=== PATIENT | female | born 1980 | race Caucasian/White ===

== ENCOUNTER 2016-05-27 06:32 | Emergency (ER) | payer OTHER ==
--- NOTE | 2016-05-27 08:38 | ED CLINICAL REPORT ---
Clinical Report - Physicians/Mid Levels [facility] [address] [place] [address] 05/27/2016 6:31 Patient: PEEWEE REZA Time Seen: 06:42. Arrived- By private vehicle. Historian- patient. HISTORY OF PRESENT ILLNESS Chief Complaint: LOWER EXTREMITY PAIN and SWELLING and ; ;(22 WEEKS ). Modifying factors. (worse with palpation). Severity is described as being moderate. The quality is noted to be "pain". This started about 2 days ago. Symptoms located in the area of the left leg. The patient has had redness and swelling. She has had difficulty walking. No sensory loss or motor loss. Patient denies an injury. Recent medical care: The patient was seen recently by a health care provider. ( Bronchitis with rib fracture). REVIEW OF SYSTEMS The patient has had a cough. It has been similar to previous symptoms. She has had skin rash. No abdominal pain. PAST HISTORY ( PCP: Fozia Alexander Ops: None Hosp: Childbirth Illness: None). No history of DVT. SOCIAL HISTORY Current every day smoker. ADDITIONAL NOTES The nursing notes have been reviewed. PHYSICAL EXAM Vital Signs: 05/27/2016 09:50 BP: 116/67. HR: 80. RR: 18. O2 saturation: 100%. 05/27/2016 07:46 BP: 107/67. HR: 81. RR: 18. O2 saturation: 99%. 05/27/2016 06:37 BP: 116/74. HR: 92. RR: 16. O2 saturation: 100%. Temp: 99.5 F. Abdomen: Soft and nontender. Gravid uterus. Extremities: Left leg: moderate erythema and tenderness, mild swelling and small abrasion located in the anterior aspect of mid leg. Neurovascular intact distally. No deformity. LABS, X-RAYS, AND EKG Lower Extremity Sonography: Negative exam. Per US tecnician. Laboratory Tests: [id number]: (CHRISTINE: 05/27/2016 07:00) ( MsgRcvd 05/27/2016 07:19) Final results Test Result Flag Units (Reference) D-DIMER QUANTITATIVE 1.40 H ug/mLFEU (0.27-0.52) The primary value of this quantitative assay relates toits negative predictive value (i.e. exclusion) of pulmonaryembolism/deep vein thrombosis/DIC.Elevated levels of d-dimer may also occur with:, age, cancer, inflammation, liver disease,post-op, infection, hematoma, coronary disease, peripheralarteriopathy, bleeding disorders and thrombolytic treatment.Results should be correlated with other clinical andradiological data.Testing Methodology: Latex Immunoassay . PROGRESS AND PROCEDURES Course of Care: This represents cellulitis rather than DVT. Antibiotic choice is problematic with . At 22 weeks organogenesis is complete so Bactrim is acceptable is not ideal. Tetracycline is un acceptable because of bone and tooth issues and keflex is unlikely to treat what statistically is most likely a MRSA infection. The risk of wosening on keflex is greater that the small risk of Bactrim at 22 weeks. I confirmed my thoughts with the slot machine floor person OB Dr Dumont. Disposition: Condition: stable. CLINICAL IMPRESSION Cellulitis of the left lower leg. 22 WEEK . INSTRUCTIONS Do not work for three days. (IMMEDIATE RECHECK IF WORSE SEE YOUR DR IN 5 DAYS). Prescription Medications: Hydrocodone/APAP 5mg / 325mg: take 1 orally every 4 hours as needed for pain. Dispense fifteen (15). No refill. Trimethoprim-Sulfamethoxazole DS: take 1 tablet orally every 12 hours for 7 days. No refill. Follow-up: Follow up with your doctor in five days. Reason for referral: CELLULITIS CHECK. Understanding of the discharge instructions verbalized. (Electronically signed by Fredy Humphrey MD 05/28/2016 9:45)
--- NOTE | 2016-05-27 08:38 | ED ORDER SUMMARY ---
..... Patient: PEEWEE REZA OrderSheet [facility] VisitID: [id number] [place] [address] 36y, F Registration Date/Time: 05/27/2016 ORDER SHEET Weight: 67.1 kg (stated) Allergies: No Known Drug Allergy GENERAL ORDERS: D-Dimer Urgent (06:43 05/27/2016 Roya MATUTE) (Ack 6:48 Jose F) (7:03 Belinda ER Clinical Trials Assistant) US Venous Left Urgent (07:24 05/27/2016 Roya MATUTE) (Ack 7:27 Indra) (9:10 Bernadine R.N.) MEDICATION ORDERS: Hydrocodone-APAP PO 5/325 mg ONE TABLET (NOW) (08:45 05/27/2016 Roya MATUTE) (Ack 9:03 LSullivan R.N.) (9:06 Bernadine R.N.) Bactrim DS PO (Tablet 800-160 mg) 1 tab (NOW) (09:08 05/27/2016 Roya MATUTE) (Ack 9:10 Bernadine R.N.) (9:17 LSullivan R.N.) Bactrim DS PO (Tablet 800-160 mg) 1 tab (NOW) (09:09 05/27/2016 Bernadine R.N. verbal order read back to Roya MATUTE) (Cancelled: Duplicate Order9:10 Bernadine R.N.) IV FLUIDS: ORDER SHEET NOTES: [Electronically signed by Jovita Mcduffie R.N. (09:52 05/27/2016)] [Electronically signed by Fredy Humphrey MD (09:45 05/28/2016)] [Electronically locked/signed by Jovita Mcduffie R.N. (09:52 05/27/2016)]
--- NOTE | 2016-05-27 08:38 | ED NURSING NOTES ---
Clinical Report - Nurses [facility] [address] [place] [address] 05/27/2016 6:31 Patient: PEEWEE REZA TRIAGE Triage time 0637. Chief Complaint: LEFT LOWER EXTREMITY PAIN, SWELLING and REDNESS. Location of symptoms- (left junior). --06:45 Lionel Lawson R.N. 06:37 05/27/16. BP: 116/74. HR: 92. RR: 16. O2 saturation: 100%. Temp: 99.5 F. Pain level now 0/10. --06:45 Lionel Lawson R.N. Weight: 67.1 kg stated. Height/Length: 63 inches Per Patient. BMI: 26.2. --06:42 Lionel Lawson R.N. Medications Methadone HCl Oral. --06:41 Lionel Lawson R.N. Allergies No Known Drug Allergy. --06:41 Lionel Lawson R.N. History Arrived by private vehicle. Historian: patient. Unaccompanied. An injury may have occurred. This occurred yesterday. It is described as radiating to the left lower extremity, knee and foot. She has had swelling and redness. 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 PAST MEDICAL HX: Currently . ( 22 weeks ). SOCIAL HX: Heavy tobacco smoker- less than 1 pack per day. No alcohol use or drug use. FALL RISK ASSESSMENT: Fall risk assessment completed. No fall risk identified. NUTRITIONAL RISK ASSESSMENT: The nutritional risk assessment revealed no deficiencies. FUNCTIONAL ASSESSMENT: Functional assessment: no impairments noted. LEARNING NEEDS ASSESSMENT: The learning needs assessment revealed no barriers. SKIN INTEGRITY ASSESSMENT: Skin integrity risk assessment completed. No skin integrity risk identified. --06:45 Lionel Lawson R.N. PROBLEMS: Threatened . . Care. Dental Caries. Bronchitis. Sick Contact. LNMP - Last Normal Menstrual Period. --06:41 Lionel Lawson R.N. Interventions ID band on patient. --06:45 Lionel Lawson R.N. PHYSICAL ASSESSMENT Ambulatory to room. GENERAL / NEURO / PSYCH: Oriented X 4. Alert. Appears in no acute distress. EXTREMITIES: Extremity pulses are within normal limits. Extremities exhibit normal ROM. Left leg: tenderness, swelling and erythema of the anterior aspect of lower leg. Limited weight bearing secondary to pain. SKIN: Skin intact. Skin is warm and dry. --06:46 Lionel Lawson R.N. NURSING PROGRESS NOTES Extremity elevated. Reassurance given. Patient identifiers checked. Call light placed in reach. Side rails up x 1. Bed placed in lowest position. Brakes of bed on. --06:47 Lionel Lawson R.N. Patient ID band checked for patient name and birthdate: patient confirmed. Blood samples drawn from the left antecubital space with Vacutainer and 21g butterfly by tech per protocol ; labeled in presence of the patient and sent to lab: rainbow set. --07:02 Forest Burton, VANGIE Orange Peel Operator Patient ID band checked for patient name and birthdate: patient confirmed. Clean catch urine collected with return of yellow-colored babar-colored clear urine; sample sent to lab. Specimen labeled in the presence of the patient. --07:02 Forest Burton, ER Orange Peel Operator 07:46 05/27/16. BP: 107/67. HR: 81. RR: 18. O2 saturation: 99%. --07:47 Jovita Mcduffie R.N. 07:47 05/27/16. ( Awaiting ultrasound.). --07:47 Jovita Mcduffie R.N. 09:06 05/27/2016 Hydrocodone-APAP (Hydrocodone-Acetaminophen) PO 5/325 mg Tablets 1 tab given. Sedative warning given. --09:06 Ashia Moseley R.N. 09:12 05/27/2016 Bactrim DS (Sulfamethoxazole-TMP DS) PO 1 tab given. Allergies verified and confirmed 5 rights. --:17 Jovita Mcduffie R.N. DISPOSITION / DISCHARGE Departure time: 916. Condition at departure: unchanged. No learning barriers present. Discharge instructions provided and reviewed with the patient. Reviewed medication(s) information. Prescription(s) given to the patient. Reviewed referral to family practice for followup. Verbalized understanding. Written instructions provided. The patient was discharged home and accompanied by train electronic technician. She left the Emergency Department ambulatory on crutches, via private vehicle and (pt had her own). --09:51 Jovita Mcduffie R.N. 09:50 05/27/16. BP: 116/67. HR: 80. RR: 18. O2 saturation: 100%. --09:51 Jovita Mcduffie R.N. Departure time: 916. --09:51 Jovita Mcduffie R.N. Locked/Released at 05/27/2016 9:52 by Jovita Mcduffie R.N.
--- NOTE | 2016-05-27 08:38 | ED CLINICAL REPORT ---
Clinical Report - Physicians/Mid Levels [facility] [address] [place] [address] 05/27/2016 6:31 Patient: PEEWEE REZA Time Seen: 06:42. Arrived- By private vehicle. Historian- patient. HISTORY OF PRESENT ILLNESS Chief Complaint: LOWER EXTREMITY PAIN and SWELLING and ; ;(22 WEEKS ). Modifying factors. (worse with palpation). Severity is described as being moderate. The quality is noted to be "pain". This started about 2 days ago. Symptoms located in the area of the left leg. The patient has had redness and swelling. She has had difficulty walking. No sensory loss or motor loss. Patient denies an injury. Recent medical care: The patient was seen recently by a health care provider. ( Bronchitis with rib fracture). REVIEW OF SYSTEMS The patient has had a cough. It has been similar to previous symptoms. She has had skin rash. No abdominal pain. PAST HISTORY ( PCP: Fozia Alexander Ops: None Hosp: Childbirth Illness: None). No history of DVT. SOCIAL HISTORY Current every day smoker. ADDITIONAL NOTES The nursing notes have been reviewed. PHYSICAL EXAM Vital Signs: 05/27/2016 09:50 BP: 116/67. HR: 80. RR: 18. O2 saturation: 100%. 05/27/2016 07:46 BP: 107/67. HR: 81. RR: 18. O2 saturation: 99%. 05/27/2016 06:37 BP: 116/74. HR: 92. RR: 16. O2 saturation: 100%. Temp: 99.5 F. Abdomen: Soft and nontender. Gravid uterus. Extremities: Left leg: moderate erythema and tenderness, mild swelling and small abrasion located in the anterior aspect of mid leg. Neurovascular intact distally. No deformity. LABS, X-RAYS, AND EKG Lower Extremity Sonography: Negative exam. Per US tecnician. Laboratory Tests: [id number]: (CHRISTINE: 05/27/2016 07:00) ( MsgRcvd 05/27/2016 07:19) Final results Test Result Flag Units (Reference) D-DIMER QUANTITATIVE 1.40 H ug/mLFEU (0.27-0.52) The primary value of this quantitative assay relates toits negative predictive value (i.e. exclusion) of pulmonaryembolism/deep vein thrombosis/DIC.Elevated levels of d-dimer may also occur with:, age, cancer, inflammation, liver disease,post-op, infection, hematoma, coronary disease, peripheralarteriopathy, bleeding disorders and thrombolytic treatment.Results should be correlated with other clinical andradiological data.Testing Methodology: Latex Immunoassay . PROGRESS AND PROCEDURES Course of Care: This represents cellulitis rather than DVT. Antibiotic choice is problematic with . At 22 weeks organogenesis is complete so Bactrim is acceptable is not ideal. Tetracycline is un acceptable because of bone and tooth issues and keflex is unlikely to treat what statistically is most likely a MRSA infection. The risk of wosening on keflex is greater that the small risk of Bactrim at 22 weeks. I confirmed my thoughts with the safety person OB Dr Dumont. Disposition: Condition: stable. CLINICAL IMPRESSION Cellulitis of the left lower leg. 22 WEEK . INSTRUCTIONS Do not work for three days. (IMMEDIATE RECHECK IF WORSE SEE YOUR DR IN 5 DAYS). Prescription Medications: Hydrocodone/APAP 5mg / 325mg: take 1 orally every 4 hours as needed for pain. Dispense fifteen (15). No refill. Trimethoprim-Sulfamethoxazole DS: take 1 tablet orally every 12 hours for 7 days. No refill. Follow-up: Follow up with your doctor in five days. Reason for referral: CELLULITIS CHECK. Understanding of the discharge instructions verbalized. (Electronically signed by Fredy Humphrey MD 05/28/2016 9:45)
--- NOTE | 2016-05-27 08:38 | ED ORDER SUMMARY ---
..... Patient: PEEWEE REZA OrderSheet [facility] VisitID: [id number] [place] [address] 36y, F Registration Date/Time: 05/27/2016 ORDER SHEET Weight: 67.1 kg (stated) Allergies: No Known Drug Allergy GENERAL ORDERS: D-Dimer Urgent (06:43 05/27/2016 Roya MATUTE) (Ack 6:48 Jose F) (7:03 Belinda ER Saas Architect) US Venous Left Urgent (07:24 05/27/2016 Roya MATUTE) (Ack 7:27 Indra) (9:10 Bernadine R.N.) MEDICATION ORDERS: Hydrocodone-APAP PO 5/325 mg ONE TABLET (NOW) (08:45 05/27/2016 Roya MATUTE) (Ack 9:03 LSullivan R.N.) (9:06 Bernadine R.N.) Bactrim DS PO (Tablet 800-160 mg) 1 tab (NOW) (09:08 05/27/2016 Roya MATUTE) (Ack 9:10 Bernadine R.N.) (9:17 LSullivan R.N.) Bactrim DS PO (Tablet 800-160 mg) 1 tab (NOW) (09:09 05/27/2016 Bernadine R.N. verbal order read back to Roya MATUTE) (Cancelled: Duplicate Order9:10 Bernadine R.N.) IV FLUIDS: ORDER SHEET NOTES: [Electronically signed by Jovita Mcduffie R.N. (09:52 05/27/2016)] [Electronically signed by Fredy Humphrey MD (09:45 05/28/2016)] [Electronically locked/signed by Jovita Mcduffie R.N. (09:52 05/27/2016)]
--- NOTE | 2016-05-27 08:38 | ED NURSING NOTES ---
Clinical Report - Nurses [facility] [address] [place] [address] 05/27/2016 6:31 Patient: PEEWEE REZA TRIAGE Triage time 0637. Chief Complaint: LEFT LOWER EXTREMITY PAIN, SWELLING and REDNESS. Location of symptoms- (left junior). --06:45 Lionel Lawson R.N. 06:37 05/27/16. BP: 116/74. HR: 92. RR: 16. O2 saturation: 100%. Temp: 99.5 F. Pain level now 0/10. --06:45 Lionel Lawson R.N. Weight: 67.1 kg stated. Height/Length: 63 inches Per Patient. BMI: 26.2. --06:42 Lionel Lawson R.N. Medications Methadone HCl Oral. --06:41 Lionel Lawson R.N. Allergies No Known Drug Allergy. --06:41 Lionel Lawson R.N. History Arrived by private vehicle. Historian: patient. Unaccompanied. An injury may have occurred. This occurred yesterday. It is described as radiating to the left lower extremity, knee and foot. She has had swelling and redness. Treatment OVEN BUILDER: None. PAST MEDICAL HX: Currently . ( 22 weeks ). SOCIAL HX: Heavy tobacco smoker- less than 1 pack per day. No alcohol use or drug use. FALL RISK ASSESSMENT: Fall risk assessment completed. No fall risk identified. NUTRITIONAL RISK ASSESSMENT: The nutritional risk assessment revealed no deficiencies. FUNCTIONAL ASSESSMENT: Functional assessment: no impairments noted. LEARNING NEEDS ASSESSMENT: The learning needs assessment revealed no barriers. SKIN INTEGRITY ASSESSMENT: Skin integrity risk assessment completed. No skin integrity risk identified. --06:45 Lionel Lawson R.N. PROBLEMS: Threatened . . Care. Dental Caries. Bronchitis. Sick Contact. LNMP - Last Normal Menstrual Period. --06:41 Lionel Lawson R.N. Interventions ID band on patient. --06:45 Lionel Lawson R.N. PHYSICAL ASSESSMENT Ambulatory to room. GENERAL / NEURO / PSYCH: Oriented X 4. Alert. Appears in no acute distress. EXTREMITIES: Extremity pulses are within normal limits. Extremities exhibit normal ROM. Left leg: tenderness, swelling and erythema of the anterior aspect of lower leg. Limited weight bearing secondary to pain. SKIN: Skin intact. Skin is warm and dry. --06:46 Lionel Lawson R.N. NURSING PROGRESS NOTES Extremity elevated. Reassurance given. Patient identifiers checked. Call light placed in reach. Side rails up x 1. Bed placed in lowest position. Brakes of bed on. --06:47 Lionel Lawson R.N. Patient ID band checked for patient name and birthdate: patient confirmed. Blood samples drawn from the left antecubital space with Vacutainer and 21g butterfly by tech per protocol ; labeled in presence of the patient and sent to lab: rainbow set. --07:02 Forest Burton, VANGIE Machine Rough Rounder Patient ID band checked for patient name and birthdate: patient confirmed. Clean catch urine collected with return of yellow-colored babar-colored clear urine; sample sent to lab. Specimen labeled in the presence of the patient. --07:02 Forest Burton, ER Machine Rough Rounder 07:46 05/27/16. BP: 107/67. HR: 81. RR: 18. O2 saturation: 99%. --07:47 Jovita Mcduffie R.N. 07:47 05/27/16. ( Awaiting ultrasound.). --07:47 Jovita Mcduffie R.N. 09:06 05/27/2016 Hydrocodone-APAP (Hydrocodone-Acetaminophen) PO 5/325 mg Tablets 1 tab given. Sedative warning given. --09:06 Ashia Moseley R.N. 09:12 05/27/2016 Bactrim DS (Sulfamethoxazole-TMP DS) PO 1 tab given. Allergies verified and confirmed 5 rights. --:17 Jovita Mcduffie R.N. DISPOSITION / DISCHARGE Departure time: 916. Condition at departure: unchanged. No learning barriers present. Discharge instructions provided and reviewed with the patient. Reviewed medication(s) information. Prescription(s) given to the patient. Reviewed referral to family practice for followup. Verbalized understanding. Written instructions provided. The patient was discharged home and accompanied by leave specialist. She left the Emergency Department ambulatory on crutches, via private vehicle and (pt had her own). --09:51 Jovita Mcduffie R.N. 09:50 05/27/16. BP: 116/67. HR: 80. RR: 18. O2 saturation: 100%. --09:51 Jovita Mcduffie R.N. Departure time: 916. --09:51 Jovita Mcduffie R.N. Locked/Released at 05/27/2016 9:52 by Jovita Mcduffie R.N.
--- NOTE | 2016-05-27 08:45 | DIAGNOSTIC IMAGING REPORT ---
PROCEDURE: US VENOUS - LEFT EXT INDICATION: SWELLING TECHNIQUE: Duplex sonography of the deep venous system in the left lower extremity was performed. Compression and augmentation techniques were used. COMPARISON: None. FINDINGS: Normal compression of the greater saphenous, common femoral, superficial femoral, popliteal, peroneal, and posterior tibial veins. Normal augmentation. There is no evidence of superficial or deep venous thrombosis. There is subcutaneous edema in the calf and several left inguinal lymph nodes present. IMPRESSION: 1. No evidence of a left lower extremity DVT 2. Subcutaneous edema in the calf with left inguinal lymph nodes which may indicate cellulitis. Correlate clinically.
--- NOTE | 2016-05-28 09:45 | ED MED RECONCILIATION SUMMARY ---
Patient: PEEWEE REZA Medication Reconciliation Report [facility] VisitID: [id number] [place] [address] 36y, F Registration Date/Time: 05/27/2016 Weight: 67.1 kg Height/Length: 63 in. BMI: 26.2 ALLERGIES: No Known Drug Allergy The patient's Home Medications are listed below: THE FOLLOWING MEDICATIONS NEED TO BE RECONCILED: Methadone HCl Oral The source(s) of the original Home Medication information: Not obtained. The following Medications were given to the patient in the Emergency Department: Hydrocodone-APAP [PO] PO 1 tab, administered: 05/27/2016 9:06:00 AM Bactrim DS [PO] PO 1 tab, administered: 05/27/2016 9:12:00 AM The following Medications were prescribed to the patient: Hydrocodone/APAP 5mg / 325mg: take 1 orally every 4 hours as needed for pain. Dispense fifteen (15). No refill. -- Fredy Humphrey MD Trimethoprim-Sulfamethoxazole DS: take 1 tablet orally every 12 hours for 7 days. No refill. -- Fredy Humphrey MD
--- NOTE | 2016-05-28 09:45 | ED MED RECONCILIATION SUMMARY ---
Patient: PEEWEE REZA Medication Reconciliation Report [facility] VisitID: [id number] [place] [address] 36y, F Registration Date/Time: 05/27/2016 Weight: 67.1 kg Height/Length: 63 in. BMI: 26.2 ALLERGIES: No Known Drug Allergy The patient's Home Medications are listed below: THE FOLLOWING MEDICATIONS NEED TO BE RECONCILED: Methadone HCl Oral The source(s) of the original Home Medication information: Not obtained. The following Medications were given to the patient in the Emergency Department: Hydrocodone-APAP [PO] PO 1 tab, administered: 05/27/2016 9:06:00 AM Bactrim DS [PO] PO 1 tab, administered: 05/27/2016 9:12:00 AM The following Medications were prescribed to the patient: Hydrocodone/APAP 5mg / 325mg: take 1 orally every 4 hours as needed for pain. Dispense fifteen (15). No refill. -- Fredy Humphrey MD Trimethoprim-Sulfamethoxazole DS: take 1 tablet orally every 12 hours for 7 days. No refill. -- Fredy Humphrey MD
--- NOTE | 2016-05-28 09:45 | ED MAR SUMMARY ---
..... Medication Administration Record [facility] [address] [place] [address] Patient: PEEWEE REZA Visit ID: [id number] 36y, F Weight: 67.1 kg Height/Length: 63 in BMI: 26.2 ALLERGIES: No Known Drug Allergy Given 09:06 05/27/2016 Ashia Moseley RCurtis Medication Administered: HYDROCODONE-APAP [PO] (HYDROCODONE-ACETAMINOPHEN), Dose: 1 tab 5/325 mg Tablets PO. Medication Ordered: Hydrocodone-APAP PO 5/325 mg ONE TABLET (NOW). Given 09:12 05/27/2016 Jovita Mcduffie, RNicolleNNicolle Medication Administered: BACTRIM DS [PO] (SULFAMETHOXAZOLE-TMP DS), Dose: 1 tab PO. Medication Ordered: Bactrim DS PO (Tablet 800-160 mg) 1 tab (NOW).
--- NOTE | 2016-05-28 09:45 | ED DISCHARGE INSTRUCTIONS ---
Patient: PEEWEE REZA General Instructions [facility] VisitID: [id number] [place] [address] 36y, F Registration Date/Time: 05/27/2016 Cellulitis of the left lower leg. 22 WEEK . INSTRUCTIONS Do not work for three days. (IMMEDIATE RECHECK IF WORSE SEE YOUR DR IN 5 DAYS). Prescription Medications: Hydrocodone/APAP 5mg / 325mg: take 1 orally every 4 hours as needed for pain. Dispense fifteen (15). No refill. Trimethoprim-Sulfamethoxazole DS: take 1 tablet orally every 12 hours for 7 days. No refill. Follow-up: Follow up with your doctor in five days. Reason for referral: CELLULITIS CHECK. Understanding of the discharge instructions verbalized. ADDITIONAL INFORMATION Cellulitis You have an infection of the skin known as cellulitis. This usually starts with a scrape, cut, insect bite, blister or other opening in the skin which becomes infected. This is a serious condition. It must be watched closely to be sure the infection is not spreading. With antibiotic treatment, the size of the red area will gradually shrink in size until the skin returns to normal. This will take 7-10 days. The red area should never increase in size once the antibiotic medicine has been started. Occasionally, an infection will be resistant to one antibiotic and another one will have to be used. Home Care: 1) Limit the use of the affected part, since excess movement can cause the infection to spread. 2) If the infection is on your leg, walk as little as possible during the first few days of the treatment. Keep your leg elevated while sitting. This will reduce swelling. 3) Take all of the antibiotic medicine exactly as directed until it is gone. Be careful not to miss any doses, especially during the first seven days. Follow Up with your doctor or this facility as directed. Check the infected area daily for the warning signs listed below. Get Prompt Medical Attention if any of the following occur: -- Spreading area of redness -- Increasing swelling or pain -- Appearance of pus or drainage -- Fever over 100.4 F (38.0 C) oral, or over 101.4 F (38.6 C) rectal, after two days on antibiotics Hydrocodone Bitartrate, Acetaminophen Oral tablet What is this medicine? ACETAMINOPHEN; HYDROCODONE (a set a MARNIE miguel fen; sarah droe KOE done) is a pain reliever. It is used to treat mild to moderate pain. How should I use this medicine? Take this medicine by mouth. Swallow it with a full glass of water. Follow the directions on the prescription label. If the medicine upsets your stomach, take the medicine with food or milk. Do not take more than you are told to take. Talk to your surgical appliances salesperson regarding the use of this medicine in children. This medicine is not approved for use in children. What side effects may I notice from receiving this medicine? Side effects that you should report to your doctor or health inpatient care manager rn as soon as possible: allergic reactions like skin rash, itching or hives, swelling of the face, lips, or tongue breathing problems confusion feeling faint or lightheaded, falls stomach pain yellowing of the eyes or skin Side effects that usually do not require medical attention (report to your doctor or health inpatient care manager rn if they continue or are bothersome): nausea, vomiting stomach upset What may interact with this medicine? alcohol antihistamines isoniazid medicines for depression, anxiety, or psychotic disturbances medicines for sleep muscle relaxants naltrexone narcotic medicines (opiates) for pain phenobarbital ritonavir tramadol What if I miss a dose? If you miss a dose, take it as soon as you can. If it is almost time for your next dose, take only that dose. Do not take double or extra doses. Where should I keep my medicine? Keep out of the reach of children. This medicine can be abused. Keep your medicine in a safe place to protect it from theft. Do not share this medicine with anyone. Selling or giving away this medicine is dangerous and against the law. Store at room temperature between 15 and 30 degrees C (59 and 86 degrees F). Protect from light. Keep container tightly closed. Throw away any unused medicine after the expiration date. Discard unused medicine and used packaging carefully. Pets and children can be harmed if they find used or lost packages. What should I tell my health care provider before I take this medicine? They need to know if you have any of these conditions: brain tumor Crohn's disease, inflammatory bowel disease, or ulcerative colitis drink more than 3 alcohol-containing drinks per day drug abuse or addiction head injury heart or circulation problems kidney disease or problems going to the bathroom liver disease lung disease, asthma, or breathing problems an unusual or allergic reaction to acetaminophen, hydrocodone, other opioid analgesics, other medicines, foods, dyes, or preservatives or trying to get breast-feeding What should I watch for while using this medicine? Tell your doctor or health inpatient care manager rn if your pain does not go away, if it gets worse, or if you have new or a different type of pain. You may develop tolerance to the medicine. Tolerance means that you will need a higher dose of the medicine for pain relief. Tolerance is normal and is expected if you take the medicine for a long time. Do not suddenly stop taking your medicine because you may develop a severe reaction. Your body becomes used to the medicine. This does NOT mean you are addicted. Addiction is a behavior related to getting and using a drug for a non-medical reason. If you have pain, you have a medical reason to take pain medicine. Your doctor will tell you how much medicine to take. If your doctor wants you to stop the medicine, the dose will be slowly lowered over time to avoid any side effects. You may get drowsy or dizzy when you first start taking the medicine or change doses. Do not drive, use machinery, or do anything that may be dangerous until you know how the medicine affects you. Stand or sit up slowly. There are different types of narcotic medicines (opiates) for pain. If you take more than one type at the same time, you may have more side effects. Give your health care provider a list of all medicines you use. Your doctor will tell you how much medicine to take. Do not take more medicine than directed. Call emergency for help if you have problems breathing. The medicine will cause constipation. Try to have a bowel movement at least every 2 to 3 days. If you do not have a bowel movement for 3 days, call your doctor or health inpatient care manager rn. Too much acetaminophen can be very dangerous. Do not take Tylenol (acetaminophen) or medicines that contain acetaminophen with this medicine. Many non-prescription medicines contain acetaminophen. Always read the labels carefully. Sulfamethoxazole, Trimethoprim Oral tablet What is this medicine? SULFAMETHOXAZOLE; TRIMETHOPRIM or SMX-TMP (suhl fuh meth OK radha zohl; trye METH oh prim) is a combination of a sulfonamide antibiotic and a second antibiotic, trimethoprim. It is used to treat or prevent certain kinds of bacterial infections. It will not work for colds, flu, or other viral infections. How should I use this medicine? Take this medicine by mouth with a full glass of water. Follow the directions on the prescription label. Take your medicine at regular intervals. Do not take it more often than directed. Do not skip doses or stop your medicine early. Talk to your surgical appliances salesperson regarding the use of this medicine in children. Special care may be needed. This medicine has been used in children as young as 2 months of age. What side effects may I notice from receiving this medicine? Side effects that you should report to your doctor or health inpatient care manager rn as soon as possible: allergic reactions like skin rash or hives, swelling of the face, lips, or tongue breathing problems fever or chills, sore throat irregular heartbeat, chest pain joint or muscle pain pain or difficulty passing urine red pinpoint spots on skin redness, blistering, peeling or loosening of the skin, including inside the mouth unusual bleeding or bruising unusually weak or tired yellowing of the eyes or skin Side effects that usually do not require medical attention (report to your doctor or health inpatient care manager rn if they continue or are bothersome): diarrhea dizziness headache loss of appetite nausea, vomiting nervousness What may interact with this medicine? Do not take this medicine with any of the following medications: aminobenzoate potassium dofetilide metronidazole This medicine may also interact with the following medications: SILVIA inhibitors like benazepril, enalapril, lisinopril, and ramipril cyclosporine digoxin diuretics indomethacin medicines for diabetes methenamine methotrexate phenytoin potassium supplements pyrimethamine sulfinpyrazone tricyclic antidepressants warfarin What if I miss a dose? If you miss a dose, take it as soon as you can. If it is almost time for your next dose, take only that dose. Do not take double or extra doses. Where should I keep my medicine? Keep out of the reach of children. Store at room temperature between 20 to 25 degrees C (68 to 77 degrees F). Protect from light. Throw away any unused medicine after the expiration date. What should I tell my health care provider before I take this medicine? They need to know if you have any of these conditions: anemia asthma being treated with anticonvulsants if you frequently drink alcohol containing drinks kidney disease liver disease low level of folic acid or [id number] dehydrogenase poor nutrition or malabsorption porphyria severe allergies thyroid disorder an unusual or allergic reaction to sulfamethoxazole, trimethoprim, sulfa drugs, other medicines, foods, dyes, or preservatives or trying to get breast-feeding What should I watch for while using this medicine? Tell your doctor or health inpatient care manager rn if your symptoms do not improve. Drink several glasses of water a day to reduce the risk of kidney problems. Do not treat diarrhea with over the counter products. Contact your doctor if you have diarrhea that lasts more than 2 days or if it is severe and watery. This medicine can make you more sensitive to the sun. Keep out of the sun. If you cannot avoid being in the sun, wear protective clothing and use a sunscreen. Do not use sun lamps or tanning beds/booths. You have been given the following additional information: Cellulitis Hydrocodone Bitartrate, Acetaminophen Oral tablet Sulfamethoxazole, Trimethoprim Oral tablet Do not work for three days. (Electronically signed by Fredy Humphrey MD 05/28/2016 9:45)
--- NOTE | 2016-05-28 09:45 | ED MAR SUMMARY ---
..... Medication Administration Record [facility] [address] [place] [address] Patient: PEEWEE REZA Visit ID: [id number] 36y, F Weight: 67.1 kg Height/Length: 63 in BMI: 26.2 ALLERGIES: No Known Drug Allergy Given 09:06 05/27/2016 Ashia Moseley RCurtis Medication Administered: HYDROCODONE-APAP [PO] (HYDROCODONE-ACETAMINOPHEN), Dose: 1 tab 5/325 mg Tablets PO. Medication Ordered: Hydrocodone-APAP PO 5/325 mg ONE TABLET (NOW). Given 09:12 05/27/2016 Jovita Mcduffie, RNicolleNNicolle Medication Administered: BACTRIM DS [PO] (SULFAMETHOXAZOLE-TMP DS), Dose: 1 tab PO. Medication Ordered: Bactrim DS PO (Tablet 800-160 mg) 1 tab (NOW).
--- NOTE | 2016-05-28 09:45 | ED DISCHARGE INSTRUCTIONS ---
Patient: PEEWEE REZA General Instructions [facility] VisitID: [id number] [place] [address] 36y, F Registration Date/Time: 05/27/2016 Cellulitis of the left lower leg. 22 WEEK . INSTRUCTIONS Do not work for three days. (IMMEDIATE RECHECK IF WORSE SEE YOUR DR IN 5 DAYS). Prescription Medications: Hydrocodone/APAP 5mg / 325mg: take 1 orally every 4 hours as needed for pain. Dispense fifteen (15). No refill. Trimethoprim-Sulfamethoxazole DS: take 1 tablet orally every 12 hours for 7 days. No refill. Follow-up: Follow up with your doctor in five days. Reason for referral: CELLULITIS CHECK. Understanding of the discharge instructions verbalized. ADDITIONAL INFORMATION Cellulitis You have an infection of the skin known as cellulitis. This usually starts with a scrape, cut, insect bite, blister or other opening in the skin which becomes infected. This is a serious condition. It must be watched closely to be sure the infection is not spreading. With antibiotic treatment, the size of the red area will gradually shrink in size until the skin returns to normal. This will take 7-10 days. The red area should never increase in size once the antibiotic medicine has been started. Occasionally, an infection will be resistant to one antibiotic and another one will have to be used. Home Care: 1) Limit the use of the affected part, since excess movement can cause the infection to spread. 2) If the infection is on your leg, walk as little as possible during the first few days of the treatment. Keep your leg elevated while sitting. This will reduce swelling. 3) Take all of the antibiotic medicine exactly as directed until it is gone. Be careful not to miss any doses, especially during the first seven days. Follow Up with your doctor or this facility as directed. Check the infected area daily for the warning signs listed below. Get Prompt Medical Attention if any of the following occur: -- Spreading area of redness -- Increasing swelling or pain -- Appearance of pus or drainage -- Fever over 100.4 F (38.0 C) oral, or over 101.4 F (38.6 C) rectal, after two days on antibiotics Hydrocodone Bitartrate, Acetaminophen Oral tablet What is this medicine? ACETAMINOPHEN; HYDROCODONE (a set a MARNIE miguel fen; sarah droe KOE done) is a pain reliever. It is used to treat mild to moderate pain. How should I use this medicine? Take this medicine by mouth. Swallow it with a full glass of water. Follow the directions on the prescription label. If the medicine upsets your stomach, take the medicine with food or milk. Do not take more than you are told to take. Talk to your animal nutrition consultant regarding the use of this medicine in children. This medicine is not approved for use in children. What side effects may I notice from receiving this medicine? Side effects that you should report to your doctor or health date night caregiver as soon as possible: allergic reactions like skin rash, itching or hives, swelling of the face, lips, or tongue breathing problems confusion feeling faint or lightheaded, falls stomach pain yellowing of the eyes or skin Side effects that usually do not require medical attention (report to your doctor or health date night caregiver if they continue or are bothersome): nausea, vomiting stomach upset What may interact with this medicine? alcohol antihistamines isoniazid medicines for depression, anxiety, or psychotic disturbances medicines for sleep muscle relaxants naltrexone narcotic medicines (opiates) for pain phenobarbital ritonavir tramadol What if I miss a dose? If you miss a dose, take it as soon as you can. If it is almost time for your next dose, take only that dose. Do not take double or extra doses. Where should I keep my medicine? Keep out of the reach of children. This medicine can be abused. Keep your medicine in a safe place to protect it from theft. Do not share this medicine with anyone. Selling or giving away this medicine is dangerous and against the law. Store at room temperature between 15 and 30 degrees C (59 and 86 degrees F). Protect from light. Keep container tightly closed. Throw away any unused medicine after the expiration date. Discard unused medicine and used packaging carefully. Pets and children can be harmed if they find used or lost packages. What should I tell my health care provider before I take this medicine? They need to know if you have any of these conditions: brain tumor Crohn's disease, inflammatory bowel disease, or ulcerative colitis drink more than 3 alcohol-containing drinks per day drug abuse or addiction head injury heart or circulation problems kidney disease or problems going to the bathroom liver disease lung disease, asthma, or breathing problems an unusual or allergic reaction to acetaminophen, hydrocodone, other opioid analgesics, other medicines, foods, dyes, or preservatives or trying to get breast-feeding What should I watch for while using this medicine? Tell your doctor or health date night caregiver if your pain does not go away, if it gets worse, or if you have new or a different type of pain. You may develop tolerance to the medicine. Tolerance means that you will need a higher dose of the medicine for pain relief. Tolerance is normal and is expected if you take the medicine for a long time. Do not suddenly stop taking your medicine because you may develop a severe reaction. Your body becomes used to the medicine. This does NOT mean you are addicted. Addiction is a behavior related to getting and using a drug for a non-medical reason. If you have pain, you have a medical reason to take pain medicine. Your doctor will tell you how much medicine to take. If your doctor wants you to stop the medicine, the dose will be slowly lowered over time to avoid any side effects. You may get drowsy or dizzy when you first start taking the medicine or change doses. Do not drive, use machinery, or do anything that may be dangerous until you know how the medicine affects you. Stand or sit up slowly. There are different types of narcotic medicines (opiates) for pain. If you take more than one type at the same time, you may have more side effects. Give your health care provider a list of all medicines you use. Your doctor will tell you how much medicine to take. Do not take more medicine than directed. Call emergency for help if you have problems breathing. The medicine will cause constipation. Try to have a bowel movement at least every 2 to 3 days. If you do not have a bowel movement for 3 days, call your doctor or health date night caregiver. Too much acetaminophen can be very dangerous. Do not take Tylenol (acetaminophen) or medicines that contain acetaminophen with this medicine. Many non-prescription medicines contain acetaminophen. Always read the labels carefully. Sulfamethoxazole, Trimethoprim Oral tablet What is this medicine? SULFAMETHOXAZOLE; TRIMETHOPRIM or SMX-TMP (suhl fuh meth OK radha zohl; trye METH oh prim) is a combination of a sulfonamide antibiotic and a second antibiotic, trimethoprim. It is used to treat or prevent certain kinds of bacterial infections. It will not work for colds, flu, or other viral infections. How should I use this medicine? Take this medicine by mouth with a full glass of water. Follow the directions on the prescription label. Take your medicine at regular intervals. Do not take it more often than directed. Do not skip doses or stop your medicine early. Talk to your animal nutrition consultant regarding the use of this medicine in children. Special care may be needed. This medicine has been used in children as young as 2 months of age. What side effects may I notice from receiving this medicine? Side effects that you should report to your doctor or health date night caregiver as soon as possible: allergic reactions like skin rash or hives, swelling of the face, lips, or tongue breathing problems fever or chills, sore throat irregular heartbeat, chest pain joint or muscle pain pain or difficulty passing urine red pinpoint spots on skin redness, blistering, peeling or loosening of the skin, including inside the mouth unusual bleeding or bruising unusually weak or tired yellowing of the eyes or skin Side effects that usually do not require medical attention (report to your doctor or health date night caregiver if they continue or are bothersome): diarrhea dizziness headache loss of appetite nausea, vomiting nervousness What may interact with this medicine? Do not take this medicine with any of the following medications: aminobenzoate potassium dofetilide metronidazole This medicine may also interact with the following medications: SILVIA inhibitors like benazepril, enalapril, lisinopril, and ramipril cyclosporine digoxin diuretics indomethacin medicines for diabetes methenamine methotrexate phenytoin potassium supplements pyrimethamine sulfinpyrazone tricyclic antidepressants warfarin What if I miss a dose? If you miss a dose, take it as soon as you can. If it is almost time for your next dose, take only that dose. Do not take double or extra doses. Where should I keep my medicine? Keep out of the reach of children. Store at room temperature between 20 to 25 degrees C (68 to 77 degrees F). Protect from light. Throw away any unused medicine after the expiration date. What should I tell my health care provider before I take this medicine? They need to know if you have any of these conditions: anemia asthma being treated with anticonvulsants if you frequently drink alcohol containing drinks kidney disease liver disease low level of folic acid or [id number] dehydrogenase poor nutrition or malabsorption porphyria severe allergies thyroid disorder an unusual or allergic reaction to sulfamethoxazole, trimethoprim, sulfa drugs, other medicines, foods, dyes, or preservatives or trying to get breast-feeding What should I watch for while using this medicine? Tell your doctor or health date night caregiver if your symptoms do not improve. Drink several glasses of water a day to reduce the risk of kidney problems. Do not treat diarrhea with over the counter products. Contact your doctor if you have diarrhea that lasts more than 2 days or if it is severe and watery. This medicine can make you more sensitive to the sun. Keep out of the sun. If you cannot avoid being in the sun, wear protective clothing and use a sunscreen. Do not use sun lamps or tanning beds/booths. You have been given the following additional information: Cellulitis Hydrocodone Bitartrate, Acetaminophen Oral tablet Sulfamethoxazole, Trimethoprim Oral tablet Do not work for three days. (Electronically signed by Fredy Humphrey MD 05/28/2016 9:45)
== END 2016-05-27 09:17 | disposition home or self-care (01) ==
LOC: ED SRH 06:32
DX: O99.712 Diseases of the skin and subcutaneous tissue complicating pregnancy, second trimester (principal); L03.115 Cellulitis of right lower limb; R22.42 Localized swelling, mass and lump, left lower limb; Z3A.22 22 weeks gestation of pregnancy; F17.210 Nicotine dependence, cigarettes, uncomplicated

== ENCOUNTER 2016-05-30 11:07 | Observation (INO) | payer OTHER ==
[~2016-05-30] VITALS: Ht 160 cm; Wt 65.6 kg
--- NOTE | 2016-05-30 13:25 | DIAGNOSTIC IMAGING REPORT ---
PROCEDURE: US VENOUS - LEFT EXT INDICATION: Cellulitis. Left leg swelling. TECHNIQUE: Color Doppler duplex imaging of the deep and superficial venous system without and with compression. COMPARISON: Compared to venous ultrasound left lower extremity on 05/27/2016. FINDINGS: Deep and superficial venous system of the lower extremity is within normal limits. There is no evidence of deep vein thrombosis or superficial thrombophlebitis. There are mildly prominent left inguinal lymph nodes which appear unchanged. IMPRESSION: 1. Negative venous ultrasound of the left lower extremity. No evidence of deep vein thrombosis. 2. Mildly prominent left inguinal lymph nodes compatible with history of cellulitis
--- NOTE | 2016-05-30 14:21 | ED NURSING NOTES ---
Clinical Report - Nurses [facility] [address] [place] [address] 05/30/2016 11:06 Patient: PEEWEE REZA TRIAGE Triage time 11:20 May 30 2016. Acuity: LEVEL 3. Chief Complaint: LEFT LOWER EXTREMITY PAIN, SWELLING and REDNESS. Alert. KAYLEIGH COMA SCORE: [place] Coma Scale: 15- eyes open spontaneously (4); best verbal response- oriented x 4 (5); best motor response- obeys commands (6). --11:40 Scott Loja R.N. 11:25 05/30/16. BP: 111/67. HR: 92. RR: 18. O2 saturation: 99% on room air. Temp: 98.1 F (oral). Pain level now: 7/10. Additional comments: LLE. --11:40 Scott Loja R.N. Weight: 67.1 kg stated. Height/Length: 63 inches Per Patient. BMI: 26.2. --11:26 Scott Loja R.N. Medications Sulfamethoxazole-TMP DS Oral (Tablet 800-160 mg) 1 tablet, 2 x daily. --11:35 Scott Loja R.N. Ibuprofen Oral, as needed. Vitamins Oral 1 pill, daily. Vicodin Oral 5 mg, as needed. --11:36 Scott Loja R.N. Medication/allergy information source: the patient. --11:40 Scott Loja R.N. Allergies No Known Drug Allergy. --11:35 Scott Loja R.N. History Arrived by private vehicle. Historian: patient. ( Painful LLE with redness and swelling. Seen here 4 days ago and placed on antibiotic. Yesterday pt noticed that the redness had spread above the knee and she had trouble mobilizing the (L) knee.). No injury occurred. This occurred (about 5 days ago). It is described as radiating to the left lower extremity and thigh. She has had swelling, redness and trouble walking. 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 PAST MEDICAL HX: Tetanus status: up-to-date. Immunizations: up-to-date. Currently : 23 weeks prgnant. In 2nd trimester. SOCIAL HX: Heavy tobacco smoker- less than 1 pack per day. History of drug use: heroin, methamphetamines, marijuana. No alcohol use. No infectious disease exposure. ABUSE ASSESSMENT: No report of abuse. FALL RISK ASSESSMENT: Fall risk assessment completed. No fall risk identified. NUTRITIONAL RISK ASSESSMENT: The nutritional risk assessment revealed no deficiencies. FUNCTIONAL ASSESSMENT: Functional assessment: no impairments noted. LEARNING NEEDS ASSESSMENT: The learning needs assessment revealed no barriers. SKIN INTEGRITY ASSESSMENT: Skin integrity risk assessment completed. No skin integrity risk identified. --11:40 Scott Loja R.N. PROBLEMS: Cellulitis. Bronchitis. Sick Contact. --11:38 Scott Loja R.N. Interventions ID band on patient. To treatment room. --11:40 Scott Loja R.N. PHYSICAL ASSESSMENT GENERAL / NEURO / PSYCH: Oriented X 4. EXTREMITIES: Limited ROM present in the left lower leg. Extremity pulses are within normal limits. No lower extremity edema. Left leg: swelling and erythema. SKIN: Skin intact. Skin is warm and dry. ( redness LLE). --11:41 Scott Loja R.N. NURSING PROGRESS NOTES Patient gowned. Reassurance given. Patient identifiers checked. Call light placed in reach. Side rails up x 1. Patient ready for evaluation- chart flagged and ED physician notified. --11:41 Scott Loja R.N. 12:30 05/30/16. ( FHT's--134 strong and regular.). --12:43 Scott Loja R.N. 13:14 05/30/2016 Site #1 started via IV in the right antecubital space with an 20g angiocath, with aseptic technique and good blood return; one attempt. Blood drawn: rainbow set. Labeled in the presence of the patient and sent to the lab. Saline lock flushed with 10 mL saline. --13:19 Aruna Ledezma R.N. 14:09 05/30/2016 Started bag #1 1000 mL IV Fluids IV NS (Saline); at 999 mL/hr over 60 minute(s) via site #1 via IV pump. Allergies verified and confirmed 5 rights. IV patency established. IV site checked: no pain, redness, or swelling. IV flushed thoroughly pre- and post-medication administration. --14:25 Scott Loja R.N. 14:18 05/30/2016 Started 600 mg of Clindamycin IVPB in bag #1 50 mL; at 100 mL/hr over 30 minute(s) via site #1 via IV pump. Allergies verified and confirmed 5 rights. IV patency established. IV site checked: no pain, redness, or swelling. IV flushed thoroughly pre- and post-medication administration. --14:28 Scott Loja R.N. 14:52 05/30/2016 Clindamycin IVPB Discontinued: bag #1 infused. Total amount infused: 50 mL. --15:27 Bev Slaughter R.N. 15:02 05/30/2016 Morphine IVP 4 mg given over 2 minute(s) via site #1. Allergies verified, confirmed 5 rights and sedative warning given to the patient. IV patency established. IV site checked: no pain, redness, or swelling. IV flushed thoroughly pre- and post-medication administration. IVP given by RN. --15:07 Scott Loja R.N. 15:27 05/30/2016 IV Fluids IV NS Discontinued: bag #1 infused. Total amount infused: 1000 mL. IV patency established. IV site checked: no pain, redness, or swelling. IV flushed thoroughly. --15:27 Bev Slaughter R.N. 14:00 05/30/16. BP: 106/74. HR: 80. RR: 16. O2 saturation: 98% on room air. --18:44 Scott Loja R.N. DISPOSITION / DISCHARGE 15:37 05/30/16. BP: 103/59. HR: 82. RR: 16. O2 saturation: 100% on room air. Temp: 98.7 F (oral). Pain level now: 05/28. --15:39 Scott Loja R.N. Departure time: 1540. --18:30 Scott Loja R.N. 15:40. Transported via stretcher by tech with IV. Report was given to a nurse via a phone call. Report included patient's care, treatment, medications, reviewed medication reconcilliation, and condition (including any recent changes or anticipated changes). All questions were answered. Report was acknowledged and care was transferred. (LILA Burkett). Patient's personal items; items were placed in belongings bag and transported with the patient. --18:31 Scott Loja R.N. Locked/Released at 05/30/2016 18:45 by Scott Loja R.N.
--- NOTE | 2016-05-30 14:21 | ED CLINICAL REPORT ---
Clinical Report - Physicians/Mid Levels [facility] [address] [place] [address] 05/30/2016 11:06 Patient: PEEWEE REZA Arrived- By private vehicle. Historian- patient. HISTORY OF PRESENT ILLNESS Chief Complaint: SKIN RASH. This started past several days and is still present and worsening. It was abrupt in onset and has been constant but is not gone now. It is described as painful and burning. It has been located on the left lower extremity. No cause has been identified. (states she was diagnosed with cellulitis to the left. report the swelling is worse now and was told to come back for any worsening. States she is taking an abx but does not know the name. Says she is also 20+ weeks . No concerns for .). Similar symptoms previously: None. Recent medical care: The patient was seen recently in the emergency department. REVIEW OF SYSTEMS No sore throat, difficulty breathing or chest pain. All systems otherwise negative, except as recorded above. PAST HISTORY See nurses notes. Tetanus immunization status is up-to-date. SOCIAL HISTORY Smoker- current status unknown. History of drug use. Is a recovering addict. No alcohol use. No recent travel. Is a local resident. FAMILY HISTORY Negative. ADDITIONAL NOTES The nursing notes have been reviewed. PHYSICAL EXAM Vital Signs: 05/30/2016 11:25 BP: 111/67. HR: 92. RR: 18. O2 saturation: 99%. Temp: 98.1 F. Pain level now: 7/10. Blood pressure normal. Oxygen saturation normal. Appearance: Alert. Oriented X3. No acute distress. Eyes: Pupils equal, round and reactive to light. Conjunctivae and eyelids normal. ENT: Ears normal. Nose normal. Pharynx normal. Neck: Neck supple. CVS: Normal heart rate and rhythm. Heart sounds normal. Respiratory: No respiratory distress. Breath sounds normal. Chest nontender. Abdomen: Nontender. No organomegaly. Skin: Skin warm and dry. Normal skin color. No rash. Normal skin turgor. Extremities: (patient is a moderate amount of swelling to the left lower extremity from the distal one third of her thigh down to her foot. Compartments are soft. There is an area of erythema noted to the anterior aspect of the junior which has been Outlined prior by a skin pen. The area of erythema appears to be within the area of marking. no crepitus. No bony other maladies. Capillary refill less than 3 seconds in all toes. Sensation grossly intact.). Neuro: Oriented X 3. No motor deficit. No sensory deficit. LABS, X-RAYS, AND EKG Lower Extremity Sonography: PROCEDURE: US VENOUS - LEFT EXT INDICATION: Cellulitis. Left leg swelling. TECHNIQUE: Color Doppler duplex imaging of the deep and superficial venous system without and with compression. COMPARISON: Compared to venous ultrasound left lower extremity on 05/27/2016. FINDINGS: Deep and superficial venous system of the lower extremity is within normal limits. There is no evidence of deep vein thrombosis or superficial thrombophlebitis. There are mildly prominent left inguinal lymph nodes which appear unchanged. IMPRESSION: 1. Negative venous ultrasound of the left lower extremity. No evidence of deep vein thrombosis. 2. Mildly prominent left inguinal lymph nodes compatible with history of cellulitis. The exam was performed by a watch repair technician. The study was independently viewed by me and interpreted by the radiologist. The study was discussed with the radiologist (Via PACS). Laboratory Tests: CBC w Diff: (CHRISTINE: 05/30/2016 13:16) ( MsgRcvd 05/30/2016 13:26) Final results Test Result Flag Units (Reference) WHITE BLOOD COUNT 12.5 H K/uL (4.5-11.5) RED BLOOD COUNT 2.98 L M/uL (4.00-5.20) HEMOGLOBIN 9.5 L gm/dL (12.0-16.0) HEMATOCRIT 27.9 L % (36.0-46.0) MEAN CELL VOLUME 94 fL (80-100) MEAN CORPUSCULAR HGB 32 pg (26-34) MEAN CORPUSCULAR HGB CONC 34 g/dL (31-37) RED CELL DISTRIBUTION WIDTH 13.2 % (11.6-14.8) PLATELET COUNT 244 K/uL (150-400) NEUTROPHIL % 88.3 H % (50-75) LYMPH % 8.7 L % (25-40) MONO % 2.5 L % (3-14) EOSINOPHIL % 0.5 % (0-4) BASOPHIL % 0 % (0-2) Lactate, Serum: (CHRISTINE: 05/30/2016 13:37) ( MsgRcvd 05/30/2016 14:10) Final results Test Result Flag Units (Reference) LACTIC ACID 0.4 mmol/L (0.4-2.0) BMP: (CHRISTINE: 05/30/2016 13:16) ( MsgRcvd 05/30/2016 13:33) Final results Test Result Flag Units (Reference) GLUCOSE 69 L mg/dL (70-110) BUN 6 L mg/dL (7-18) CREATININE 0.6 mg/dL (0.6-1.3) Estimated GFR >60 mL/min Estimated GFR- >60 mL/min Note: Persistent reduction over 3 months in eGFR<60 mL/min/1.73 m2 defines CKD. Patients with eGFR values>=60 mL/min/1.73 m2 may also have CKD if evidence ofpersistent proteinuria. Additional information may be foundat [email or web address].org. SODIUM 136 mmol/L (136-145) POTASSIUM 3.5 mmol/L (3.5-5.1) CHLORIDE 103 mmol/L (98-107) CARBON DIOXIDE 21 mmol/L (21-32) CALCIUM 8.6 mg/dL (8.5-10.1) . PROGRESS AND PROCEDURES Course of Care: the patient is a pleasant 36-year-old female with recent diagnosis of cellulitis to the left lecture me presented for evaluation of swelling. Patient's medical record has been reviewed in the prior visit. Patient was given Bactrim. Patient is currently . Kim's antibodies are limited secondary to patient's and possible interaction with current . Appears appropriate and buttocks for the appropriate reasons of been decided upon. The patient is having increasing swelling. Ultrasound performed at that time was negative. Repeat ultrasound would be recommended for any change in DVT status. Patient is agreeable to treatment plan. Patient currently reporting no need for pain medication at this time. We'll monitor . Workup does not show any acute other maladies with the patient having a DVT. On reevaluation, pttsssthe ower extremity. Patient had discussed with RN the potential of redness that has been extending past the area that was outlined by the pen. On my examination, there is no clear indication of redness or swelling past the skin pen area however on reexamination, patient was noted to have faint area of erythema noted in addition to the area of swelling that was documented earlier. I discussion with patient in regards to admission to the hospital or outpatient management. Because of the large area of cellulitis and current ,IV antibiotics was recommended. Patient is agreeable to the treatment and plan. At this time, laboratory studies have been also ordered. Patient does not have evidence of toxic appearance. Patient's vital signs are otherwise unremarkable. Laboratory studies were drawn in anticipation for patient to be admitted to the hospital for failed outpatient antibiotics. Workup shows patient to have white blood cell count at 12.5. Patient's heart rate is noted to be 92. Patient meets SIRS criteria. Because of patient needs to this criteria and has an infection to the left lecture me, patient will be probably put on sepsis protocol. Antibiotic 7 ordered. I discussed patient's care with the on-call SUPERVISOR [employer]. Spoke with Dr. KEENAN and who agrees with clindamycin as the antibiotic of choice at this point in time. This antibiotic as been shown to have no severe competitions with and is usually well-tolerated. Also discussed case with hospitalist who will accept the patient. No further recommendations. Blood cultures and lactic acid also been obtained. Blood cultures have been obtained prior to the administration of antibiotics. Patient is continuing to be resting in bed and in no acute distress. Patient continues to be nontoxic. The patient was admitted to the hospital. Prior to patient's departure from the emergency department, patient was noted to be resting in bed and in no acute distress. Pain medication as been ordered at this time because the patient had requested to them. Otherwise no other new concerns. Patient appears stable fortelemetry placement. Blood pressure and heart rate are otherwise unremarkable. Critical care performed (40 minutes). Time is exclusive of separately billable procedures. Time includes: direct patient care, patient reassessment, coordination of patient care, interpretation of data (laboratory data), review of patient's medical records, medical consultation and documentation of patient care. CLINICAL IMPRESSION acute sepsis left lower extremity cellulitis, failed outpatient treatment. (Electronically signed by Srinivas Antoine Dr. 06/01/2016 14:41)
--- NOTE | 2016-05-30 14:21 | ED ORDER SUMMARY ---
..... Patient: PEEWEE REZA OrderSheet [facility] VisitID: [id number] [address] [place], [place] [id number] 36y, F Registration Date/Time: 05/30/2016 ORDER SHEET Weight: 67.1 kg (stated) Allergies: No Known Drug Allergy GENERAL ORDERS: US Venous Left Urgent (11:56 05/30/2016 Kimmie Ortez) (Ack 12:11 Maggy) (14:12 Shea R.N.) Heart Tones (12:41 05/30/2016 Shea R.N. verbal order read back to Kimmie Ortez) (12:41 Shea R.N.) Blood Culture (Yes) (Bactrim) Urgent (13:07 05/30/2016 Kimmie Ortez) (Ack 13:16 Maggy) (13:58 Maggy) CBC w Diff Urgent (13:08 05/30/2016 Kimmie Ortez) (Ack 13:16 Maggy) (13:20 Jaimee R.N.) BMP Urgent (13:08 05/30/2016 Kimmie Ortez) (Ack 13:16 Maggy) (13:20 Jaimee R.N.) Lactate, Serum Urgent (13:08 05/30/2016 Kimmie Ortez) (Ack 13:16 Maggy) (13:58 Maggy) MEDICATION ORDERS: IV FLUIDS: Clindamycin IV 600 mg/50mL (NOW) (13:14 05/30/2016 Kimmie Ortez) (14:28 Shea R.N.) IV NS : initial bolus 1000 mL (1000 mL/hr), then none - for X1 (NOW) (14:12 05/30/2016 Kimmie Ortez) (14:25 Shea R.N.) Morphine IV 4 mg (HIGH ALERT MEDICATION, NOW) (15:00 05/30/2016 Kimmie rOtez) (15:07 Shea R.N.) ORDER SHEET NOTES: [Electronically signed by Scott Loja R.N. (18:45 05/30/2016)] [Electronically signed by Srinivas Antoine Dr. (14:41 06/01/2016)] [Electronically locked/signed by Scott Loja R.N. (18:45 05/30/2016)]
--- NOTE | 2016-05-30 14:21 | ED ORDER SUMMARY ---
..... Patient: PEEWEE REZA OrderSheet [facility] VisitID: [id number] [address] [place], [place] [id number] 36y, F Registration Date/Time: 05/30/2016 ORDER SHEET Weight: 67.1 kg (stated) Allergies: No Known Drug Allergy GENERAL ORDERS: US Venous Left Urgent (11:56 05/30/2016 Kimmie Ortez) (Ack 12:11 Maggy) (14:12 Shea R.N.) Heart Tones (12:41 05/30/2016 Shea R.N. verbal order read back to Kimmie Ortez) (12:41 Shea R.N.) Blood Culture (Yes) (Bactrim) Urgent (13:07 05/30/2016 Kimmie Ortez) (Ack 13:16 Maggy) (13:58 Maggy) CBC w Diff Urgent (13:08 05/30/2016 Kimmie Ortez) (Ack 13:16 Maggy) (13:20 Jaimee R.N.) BMP Urgent (13:08 05/30/2016 Kimmie Ortez) (Ack 13:16 Maggy) (13:20 Jaimee R.N.) Lactate, Serum Urgent (13:08 05/30/2016 Kimmie Ortez) (Ack 13:16 Maggy) (13:58 Maggy) MEDICATION ORDERS: IV FLUIDS: Clindamycin IV 600 mg/50mL (NOW) (13:14 05/30/2016 Kimmie Ortez) (14:28 Shea R.N.) IV NS : initial bolus 1000 mL (1000 mL/hr), then none - for X1 (NOW) (14:12 05/30/2016 Kimmie Ortez) (14:25 Shea R.N.) Morphine IV 4 mg (HIGH ALERT MEDICATION, NOW) (15:00 05/30/2016 Kimmie Ortez) (15:07 Shea R.N.) ORDER SHEET NOTES: [Electronically signed by Scott Loja R.N. (18:45 05/30/2016)] [Electronically signed by Srinivas Antoine Dr. (14:41 06/01/2016)] [Electronically locked/signed by Scott Loja R.N. (18:45 05/30/2016)]
[2016-05-30 16:06] VITALS: BP 114/72
--- NOTE | 2016-05-30 17:30 | History & Physical Report ---
Information Source Information Source: Self Reliability: Good History Chief Complaint left leg swelling and redness History of Present Illness Patient is a 36 year old female who is 24 weeks , who is presenting with a two day history of left leg swelling and redness. Patient claims that she had no inciting factor that caused this swelling. She says that she woke up on tuesday morning with a sensation as if someone had hit her leg, at the inferior portion of her junior. She noticed that is was slightly swollen but did not have any evidence of abrasion of bruising. Patient noticed that her leg was becoming more swollen throughout the day to the point where it was difficult to place any weight on it. Patient woke up on Tuesday morning with the leg swollen and red in various area. Patient did not notice any exudate or any fluctuant areas. Patient has not had any fevers and does not report any other areas of swelling or redness. Patient History 1. Cellulitis of left lower extremity Social History Patient smokes cigarettes and says that she smokes half a pack a day. Patient does not drink or use illicit substances. Patient has a history of heroin abuse 10 years prior for which she is on methadone currently. 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 Family History Family history was reviewed; no changes noted. Advance Directive Durable POA-Healthcare Medications and Allergies Medications Home Medications Methadone 90 mg daily Pre sadie vitamins Current Medications Sig/Germaine Start time Last Medication Dose Route Stop Time Status Admin Clindamycin 50 ML Q8HR 05/30 2200 AC Phosphate/Dextrose IV Heparin Sodium 5,000 UNITS Q8HR 05/30 2200 AC (Porcine) SC Acetaminophen 650 MG Q6H PRN 05/30 1600 AC PO Morphine Sulfate See Dose Q4H PRN 05/30 1430 AC Insts (1) IV Ondansetron HCl 4 MG Q8H PRN 05/30 1430 AC IV Dose Instructions: (1)Morphine Sulfate: 2 - 4 MG Allergies Coded Allergies: NKA (05/30/16) Review of Systems Constitutional Denies: Fever, Chills, Sweats, Weakness, Malaise, Other. Eyes Denies: Pain, Vision Change, Conjunctival Inflammation, Eyelid Inflammation, Redness, Other. ENT Denies: Ear Pain, Ear Discharge, Nose Pain, Nasal Discharge, Nasal Congestion, Mouth Pain, Mouth Swelling, Throat Pain, Throat Swelling, Other. Respiratory Denies: Cough, Dry, SOB w/exertion, Wheezing, Hemoptysis, Pleuritic Pain, Sputum , Other. Cardiovascular Denies: Chest Pain, Palpitations, Orthopnea, PND, Edema, Light-headedness, Other. Gastrointestinal Denies: Nausea, Vomiting, Abdominal Pain, Diarrhea, Constipation, Melena, Hematochezia, Other. Genitourinary Denies: Dysuria, Frequency, Incontinence, Hematuria, Retention, Other. Musculoskeletal Denies: Neck Pain, Shoulder Pain, Arm Pain, Back Pain, Hand Pain, Leg Pain, Foot Pain, Other. Skin Other (left leg erythema over theshin). Physical Exam Vital Signs / I&Os Vital Signs Date Time Temp Pulse Resp B/P Pulse O2 O2 Flow FiO2 Ox Delivery Rate 05/30 1606 98.1 78 16 114/72 100 Room Air General Appearance Alert, Oriented X3, No acute distress HEENT Normal exam, Moist mucous membranes Lungs Normal exam Cardiovascular Normal S1 and S2, No murmurs, gallops, rubs Abdomen Normal exam, Normal bowel sounds, Soft, - normal gravid uterus Extremities - over the left junior there is a circumfrential area measuing approx 12 cm by 8 cm that is erythematous. there is a small punctate scab in the middle which could be the source of pruritis Psych/Mental Status Mental status normal LAB Results Laboratory Tests 05/30 05/30 1316 1337 Chemistry Plasma Sodium (136 - 145 mmol/L) 136 Plasma Potassium (3.5 - 5.1 mmol/L) 3.5 Plasma Chloride (98 - 107 mmol/L) 103 CO2 (Enzymatic) (21 - 32 mmol/L) 21 BUN (7 - 18 mg/dL) 6 Creatinine (0.6 - 1.3 mg/dL) 0.6 Est GFR ( Amer) (mL/min) >60 Est GFR (Non-Af Amer) (mL/min) >60 Glucose (70 - 110 mg/dL) 69 Lactic Acid (0.4 - 2.0 mmol/L) 0.4 Plasma Calcium (8.5 - 10.1 mg/dL) 8.6 Hematology WBC (4.5 - 11.5 K/uL) 12.5 RBC (4.00 - 5.20 M/uL) 2.98 Hgb (12.0 - 16.0 gm/dL) 9.5 Hct (36.0 - 46.0 %) 27.9 MCV (80 - 100 fL) 94 MCH (26 - 34 pg) 32 RDW (11.6 - 14.8 %) 13.2 Neut % (Auto) (50 - 75 %) 88.3 Lymph % (Auto) (25 - 40 %) 8.7 Hart % (Auto) (3 - 14 %) 2.5 Eos % (Auto) (0 - 4 %) 0.5 Baso % (Auto) (0 - 2 %) 0 Plt Count, EDTA (150 - 400 K/uL) 244 PUBS MCHC (31 - 37 g/dL) 34 Microbiology Date/Time Procedure - Status Source Growth 05/30 1337 Blood Culture - RECD BLOOD 05/30 1330 Blood Culture - RECD BLOOD Assessment and Plan Problem List 1. Cellulitis of left lower extremity Plan - cellulitis is isolated to the pretibial area with some spread to the thigh - no fluctuance noted - obtained blood cultures - will treat with clindamycin 900 mg q8h - will monitor progression of erythema 2. Tobacco abuse counseling Plan - pt smokes half a pack a day - pt counseled on smoking cessation and the dangers of smoking while - pt said that she understood. and will make attempts to stop 3. Opioid abuse, in remission Plan - pt has history of opioid abuse 10 years ago - pt is currently on methadone 90 mg daily 4. Plan - currently patient has an obgyn - pt is at 24 weeks - will continue with vitamins as needed
[2016-05-30 19:09] VITALS: BP 102/64
[2016-05-30] MEDS ORDERED: METHADOSE40 MG PO (19:11)
[2016-05-30 22:55] VITALS: BP 100/62
[2016-05-31 02:21] VITALS: BP 108/68
[2016-05-31 07:02] VITALS: BP 94/62
[2016-05-31 11:20] VITALS: BP 108/73
[2016-05-31 14:40] VITALS: BP 95/59
[2016-05-31 18:15] VITALS: BP 112/70
--- NOTE | 2016-05-31 18:51 | Progress Note ---
Subjective General Pt seen and examined. Patients leg is improving however persistently swollen. Erythema is still present. Constitutional Denies: Fever, Chills, Sweats, Weakness, Malaise, Other. Eyes Denies: Pain, Vision Change, Conjunctival Inflammation, Eyelid Inflammation, Redness, Other. ENT Denies: Ear Pain, Ear Discharge, Nose Pain, Nasal Discharge, Nasal Congestion, Mouth Pain, Mouth Swelling, Throat Pain, Throat Swelling, Other. Respiratory Denies: Cough, Dry, SOB w/exertion, Wheezing, Hemoptysis, Pleuritic Pain, Sputum , Other. Cardiovascular Denies: Chest Pain, Palpitations, Orthopnea, PND, Edema, Light-headedness, Other. Gastrointestinal Denies: Nausea, Vomiting, Abdominal Pain, Diarrhea, Constipation, Melena, Hematochezia, Other. Genitourinary Denies: Dysuria, Frequency, Incontinence, Hematuria, Retention, Other. Musculoskeletal Denies: Neck Pain, Shoulder Pain, Arm Pain, Back Pain, Hand Pain, Leg Pain, Foot Pain, Other. Skin Other (swelling ). Physical Exam Vital Signs / I&Os Vital Signs Date Time Temp Pulse Resp B/P Pulse O2 O2 Flow FiO2 Ox Delivery Rate 06/01 1428 98.2 71 18 113/66 98 Room Air 06/01 1054 97.9 75 18 103/70 97 Room Air 06/01 0813 Room Air 0.0 06/01 0702 97.5 70 18 92/61 98 Room Air 0.0 06/01 0300 97.7 72 18 111/72 98 Room Air 05/31 2238 98.1 85 18 115/76 95 Room Air 05/31 1815 98.2 84 18 112/70 100 Room Air 05/31 1620 Room Air I&O 05/31 0800 05/31 1600 06/01 0000 Intake Total 820 650 600 Output Total 650 700 900 Balance 170 -50 -300 General Appearance Alert, Oriented X3, No acute distress HEENT Normal exam Lungs Normal exam Cardiovascular Normal exam Abdomen Normal exam Extremities persistently swollen left leg, persistent erythema Neurological Normal exam LAB Results Laboratory Tests 06/01 1304 Chemistry Iron (35 - 150 ug/dL) 29 TIBC (260 - 445 ug/dL) 262 Iron Saturation (15 - 50 %) 11 Microbiology Date/Time Procedure - Status Source Growth 05/31 1944 MRSA Screen - RECD NASAL Assessment and Plan Problem List 1. Cellulitis of left lower extremity Plan - persistenly swollen and erythematous - will keep it elevated and continue with the clindamycin - will continue with wrappings 2. Plan - pt is 24 weeks pregant - will provide with pre sadie vitamins 3. Anemia Plan - pt has diagnosis of anemia - will provide iron supplemntation - will obtain iron labs
[2016-05-31 22:38] VITALS: BP 115/76
[2016-06-01 03:00] VITALS: BP 111/72
[2016-06-01 07:02] VITALS: BP 92/61
[2016-06-01 10:54] VITALS: BP 103/70
[2016-06-01 14:28] VITALS: BP 113/66
--- NOTE | 2016-06-01 14:42 | ED MED RECONCILIATION SUMMARY ---
Patient: PEEWEE REZA Medication Reconciliation Report [facility] VisitID: [id number] [address] [place] [address] 36y, F Registration Date/Time: 05/30/2016 Weight: 67.1 kg Height/Length: 63 in. BMI: 26.2 ALLERGIES: No Known Drug Allergy The patient's Home Medications are listed below: THE FOLLOWING MEDICATIONS NEED TO BE RECONCILED: Ibuprofen Oral Vitamins Oral 1 pill, daily Sulfamethoxazole-TMP DS Oral (800-160 mg) 1 tablet, 2 x daily Vicodin Oral 5 mg The source(s) of the original Home Medication information: patient The following Medications were given to the patient in the Emergency Department: IV NS IV Fluids bolus 0, then 999 mL/hr, administered: 05/30/2016 2:09:00 PM Clindamycin [IVPB] IVPB bolus 0, then 600 mg 100 mL/hr, administered: 05/30/2016 2:18:00 PM Morphine [IVP] IVP 4 mg, administered: 05/30/2016 3:02:00 PM The following Medications were prescribed to the patient: None.
--- NOTE | 2016-06-01 14:42 | ED DISCHARGE INSTRUCTIONS ---
Patient: PEEWEE REZA General Instructions [facility] VisitID: [id number] [address] [place] [address] 36y, F Registration Date/Time: 05/30/2016 acute sepsis left lower extremity cellulitis, failed outpatient treatment. (Electronically signed by Srinivas Antoine Dr. 06/01/2016 14:41)
--- NOTE | 2016-06-01 14:42 | ED MED RECONCILIATION SUMMARY ---
Patient: PEEWEE REZA Medication Reconciliation Report [facility] VisitID: [id number] [address] [place] [address] 36y, F Registration Date/Time: 05/30/2016 Weight: 67.1 kg Height/Length: 63 in. BMI: 26.2 ALLERGIES: No Known Drug Allergy The patient's Home Medications are listed below: THE FOLLOWING MEDICATIONS NEED TO BE RECONCILED: Ibuprofen Oral Vitamins Oral 1 pill, daily Sulfamethoxazole-TMP DS Oral (800-160 mg) 1 tablet, 2 x daily Vicodin Oral 5 mg The source(s) of the original Home Medication information: patient The following Medications were given to the patient in the Emergency Department: IV NS IV Fluids bolus 0, then 999 mL/hr, administered: 05/30/2016 2:09:00 PM Clindamycin [IVPB] IVPB bolus 0, then 600 mg 100 mL/hr, administered: 05/30/2016 2:18:00 PM Morphine [IVP] IVP 4 mg, administered: 05/30/2016 3:02:00 PM The following Medications were prescribed to the patient: None.
--- NOTE | 2016-06-01 14:42 | ED MAR SUMMARY ---
..... Medication Administration Record [facility] [address] [place] [address] Patient: PEEWEE REZA Visit ID: [id number] 36y, F Weight: 67.1 kg Height/Length: 63 in BMI: 26.2 ALLERGIES: No Known Drug Allergy Start 14:09 05/30/2016 Scott Loja R.N., Stop 15:27 05/30/2016 Bev Slaughter R.N. Medication Administered: IV NS (SALINE), Dose: IV Fluids over 60 minute(s), Rate: 999 mL/hr, Dispensed: 1000 mL bag, Site: #1 right AC. Medication Ordered: IV NS : initial bolus 1000 mL (1000 mL/hr), then none - for X1 (NOW). Start 14:18 05/30/2016 Scott Loja R.N., Stop 14:52 05/30/2016 Bev Slaughter R.N. Medication Administered: CLINDAMYCIN [IVPB], Dose: 600 mg IVPB over 30 minute(s), Rate: 100 mL/hr, Dispensed: 50 mL bag, Site: #1 right AC. Medication Ordered: Clindamycin IV 600 mg/50mL (NOW). Given 15:02 05/30/2016 Scott Loja R.N. Medication Administered: MORPHINE [IVP], Dose: 4 mg IVP over 2 minute(s), Site: #1 right AC. Medication Ordered: Morphine IV 4 mg (HIGH ALERT MEDICATION, NOW).
--- NOTE | 2016-06-01 14:42 | ED MAR SUMMARY ---
..... Medication Administration Record [facility] [address] [place] [address] Patient: PEEWEE REZA Visit ID: [id number] 36y, F Weight: 67.1 kg Height/Length: 63 in BMI: 26.2 ALLERGIES: No Known Drug Allergy Start 14:09 05/30/2016 Scott Loja R.N., Stop 15:27 05/30/2016 Bev Slaughter R.N. Medication Administered: IV NS (SALINE), Dose: IV Fluids over 60 minute(s), Rate: 999 mL/hr, Dispensed: 1000 mL bag, Site: #1 right AC. Medication Ordered: IV NS : initial bolus 1000 mL (1000 mL/hr), then none - for X1 (NOW). Start 14:18 05/30/2016 Scott Loja R.N., Stop 14:52 05/30/2016 Bev Slaughter R.N. Medication Administered: CLINDAMYCIN [IVPB], Dose: 600 mg IVPB over 30 minute(s), Rate: 100 mL/hr, Dispensed: 50 mL bag, Site: #1 right AC. Medication Ordered: Clindamycin IV 600 mg/50mL (NOW). Given 15:02 05/30/2016 Scott Loja R.N. Medication Administered: MORPHINE [IVP], Dose: 4 mg IVP over 2 minute(s), Site: #1 right AC. Medication Ordered: Morphine IV 4 mg (HIGH ALERT MEDICATION, NOW).
--- NOTE | 2016-06-01 14:42 | ED DISCHARGE INSTRUCTIONS ---
Patient: PEEWEE REZA General Instructions [facility] VisitID: [id number] [address] [place] [address] 36y, F Registration Date/Time: 05/30/2016 acute sepsis left lower extremity cellulitis, failed outpatient treatment. (Electronically signed by Srinivas Antoine Dr. 06/01/2016 14:41)
--- NOTE | 2016-06-01 15:30 | Progress Note ---
Subjective General Pt seen and examined, patient is resting comfortably. Patients erythema has improved slightly but is still present around the original areas Constitutional Denies: Fever, Chills, Sweats, Weakness, Malaise, Other. Eyes Denies: Pain, Vision Change, Conjunctival Inflammation, Eyelid Inflammation, Redness, Other. Respiratory Denies: Cough, Dry, SOB w/exertion, Wheezing, Hemoptysis, Pleuritic Pain, Sputum , Other. Cardiovascular Denies: Chest Pain, Palpitations, Orthopnea, PND, Edema, Light-headedness, Other. Gastrointestinal Denies: Nausea, Vomiting, Abdominal Pain, Diarrhea, Constipation, Melena, Hematochezia, Other. Genitourinary Denies: Dysuria, Frequency, Incontinence, Hematuria, Retention, Other. Musculoskeletal Leg Pain. Skin Other. Physical Exam Vital Signs / I&Os Vital Signs Date Time Temp Pulse Resp B/P Pulse O2 O2 Flow FiO2 Ox Delivery Rate 06/01 1428 98.2 71 18 113/66 98 Room Air 06/01 1054 97.9 75 18 103/70 97 Room Air 06/01 0813 Room Air 0.0 06/01 0702 97.5 70 18 92/61 98 Room Air 0.0 06/01 0300 97.7 72 18 111/72 98 Room Air 05/31 2238 98.1 85 18 115/76 95 Room Air 05/31 1815 98.2 84 18 112/70 100 Room Air 05/31 1620 Room Air I&O 05/31 0800 05/31 1600 06/01 0000 Intake Total 820 650 600 Output Total 650 700 900 Balance 170 -50 -300 General Appearance Alert, Oriented X3, No acute distress Lungs Normal exam Cardiovascular Normal exam Abdomen Normal exam Extremities swollen left leg, erythema is improving Psych/Mental Status Mental status normal LAB Results Laboratory Tests 06/01 1304 Chemistry Iron (35 - 150 ug/dL) 29 TIBC (260 - 445 ug/dL) 262 Iron Saturation (15 - 50 %) 11 Microbiology Date/Time Procedure - Status Source Growth 05/31 1944 MRSA Screen - RECD NASAL Assessment and Plan Problem List 1. Cellulitis of left lower extremity Plan - will continue with leg elevation and wrappings - will continue with clindamycin 2. Plan - Pt is 24 weeks - will provide with vitamin 3. Anemia Plan - Pts iron studies show that the patient is deficient in iron - will start on supplementatio n
[2016-06-01 18:39] VITALS: BP 115/76
[2016-06-01 22:30] VITALS: BP 107/63
[2016-06-02 03:19] VITALS: BP 115/76
[2016-06-02 09:20] VITALS: BP 119/79
[2016-06-02 10:34] VITALS: BP 91/64
[2016-06-02 12:09] VITALS: BP 101/65
[2016-06-02] MEDS ORDERED: CLEOCIN300 MG PO (14:16)
[2016-06-02] MEDS ORDERED: FERROUS SULFATE PO (14:18)
--- NOTE | 2016-06-02 14:18 | Provider's Discharge Care Plan ---
Problem, Goal, Plan Problem List 1. Cellulitis of left lower extremity Instructions: Stop smoking, - c/w antibiotics as prescribed 2. Tobacco abuse Instructions: Stop smoking 3. Instructions: Stop smoking, - follow up with your ob-cycle counter 4. Anemia Instructions: - take iron tabs as prescribed
--- NOTE | 2016-06-02 14:18 | Discharge Summary ---
Discharge Summary Report Admit Date 05/30/16 Discharge Date 06/02/16 Admission Diagnosis Left lower extremity cellulitis Discharge Diagnosis left lower extremity cellulitis Brief History Patient is a 36 year old female who is 24 weeks , who is presenting with a two day history of left leg swelling and redness. Patient claims that she had no inciting factor that caused this swelling. She says that she woke up on tuesday morning with a sensation as if someone had hit her leg, at the inferior portion of her junior. She noticed that is was slightly swollen but did not have any evidence of abrasion of bruising. Patient noticed that her leg was becoming more swollen throughout the day to the point where it was difficult to place any weight on it. Patient woke up on Tuesday morning with the leg swollen and red in various area. Patient did not notice any exudate or any fluctuant areas. Patient has not had any fevers and does not report any other areas of swelling or redness. Hospital Course Patient was admitted for the diagnosis of cellulitis. Patient was placed on clindamycin and tolerated the medication well, and had almost immediate improvement. Patient was placed on nicotine patch and urged to quit smoking. Patient addtionally was told to keep the leg wrapped in nanette bandage and elevated. Patient progressed well and eventually the overall erythema and swelling subsided. Pt was additionally seen to have iron defiency anemia, patient was started on iron supplementation, which was told to her to continue. Patient will be dicharged home. General Appearance Alert, Oriented X3, No acute distress Lungs Clear to auscultation, Normal air movement Cardiovascular Normal S1, Normal S2 Abdomen Soft, No tenderness, No masses Neurological Normal speech, Strength at 5/5 X4 ext, Cranial nerves 3-12 NL Lab/Imaging Laboratory Tests 06/02 0540 Chemistry Plasma Sodium (136 - 145 mmol/L) 138 Plasma Potassium (3.5 - 5.1 mmol/L) 4.0 Plasma Chloride (98 - 107 mmol/L) 103 CO2 (Enzymatic) (21 - 32 mmol/L) 26 BUN (7 - 18 mg/dL) 5 Creatinine (0.6 - 1.3 mg/dL) 0.4 Est GFR ( Amer) (mL/min) >60 Est GFR (Non-Af Amer) (mL/min) >60 Glucose (70 - 110 mg/dL) 82 Plasma Calcium (8.5 - 10.1 mg/dL) 7.9 Total Bilirubin (0.0 - 1.0 mg/dL) 0.1 AST (15 - 37 U/L) 14 ALT (12 - 78 U/L) 15 Alkaline Phosphatase (46 - 116 U/L) 95 Total Protein (6.4 - 8.2 g/dL) 5.4 Albumin (3.3 - 5.0 g/dL) 2.1 Hematology WBC (4.5 - 11.5 K/uL) 5.6 RBC (4.00 - 5.20 M/uL) 2.64 Hgb (12.0 - 16.0 gm/dL) 8.3 Hct (36.0 - 46.0 %) 24.9 MCV (80 - 100 fL) 94 MCH (26 - 34 pg) 32 RDW (11.6 - 14.8 %) 13.3 Neut % (Auto) (50 - 75 %) 56.5 Lymph % (Auto) (25 - 40 %) 32.9 [place] % (Auto) (3 - 14 %) 6.9 Eos % (Auto) (0 - 4 %) 3.2 Baso % (Auto) (0 - 2 %) 0.5 Plt Count, EDTA (150 - 400 K/uL) 237 PUBS MCHC (31 - 37 g/dL) 34 Discharge Instructions/Meds - take medications as prescribed - keep left leg elevated, and wrapped with nanette bandage - stop smoking - continue with your iron supplements
--- NOTE | 2016-06-02 14:18 | Provider's Discharge Care Plan ---
Problem, Goal, Plan Problem List 1. Cellulitis of left lower extremity Instructions: Stop smoking, - c/w antibiotics as prescribed 2. Tobacco abuse Instructions: Stop smoking 3. Instructions: Stop smoking, - follow up with your ob-senior research consultant 4. Anemia Instructions: - take iron tabs as prescribed
[2016-06-02 14:37] VITALS: BP 114/76
== END 2016-06-02 15:35 | disposition home or self-care (01) ==
LOC: ED SRH 11:07 → TRANS SRH 14:33 → ACUTE2 SRH 14:33
PROVIDERS: ADMIT Internal Medicine
DX: O99.712 Diseases of the skin and subcutaneous tissue complicating pregnancy, second trimester (principal); L03.116 Cellulitis of left lower limb; Z3A.24 24 weeks gestation of pregnancy; O99.322 Drug use complicating pregnancy, second trimester; F11.20 Opioid dependence, uncomplicated; O99.332 Smoking (tobacco) complicating pregnancy, second trimester; O09.522 Supervision of elderly multigravida, second trimester; O99.012 Anemia complicating pregnancy, second trimester; D50.9 Iron deficiency anemia, unspecified